=== PATIENT | female | born 1995 | race Two or more races ===

== ENCOUNTER 2021-08-22 00:14 | Emergency (ER) | payer BC ==
[~2021-08-22] VITALS: Ht 157.5 cm; Wt 56.2 kg
[2021-08-22] MEDS ORDERED: ALLEGRA ALLERG180 MG PO (03:32)
[2021-08-22] MEDS ORDERED: BETAMETHASONE D15 G2 TOP (03:32)
[2021-08-22] MEDS ORDERED: CEPHALEXIN500 MG PO (03:32)
== END 2021-08-22 03:38 | disposition home or self-care (01) ==
LOC: ER 00:14
DX: S80.862A Insect bite (nonvenomous), left lower leg, initial encounter (principal); W57.XXXA Bitten or stung by nonvenomous insect and other nonvenomous arthropods, initial encounter; Y93.89 Activity, other specified; Y92.89 Other specified places as the place of occurrence of the external cause; Y99.8 Other external cause status